=== PATIENT | female | born 1970 | race Caucasian/White ===

== ENCOUNTER 2022-02-10 13:16 | Emergency (ER) | payer BC, SELFPAY ==
[2022-02-10 13:28] VITALS: BP 122/57; PULSE 87; RESP 16; TEMP 36.6; O2SAT 99
--- NOTE | 2022-02-10 13:32 | ED.GENADULT ---
HPI - General Adult General Chief complaint: Ear Stated complaint: Bilateral Ear Irritation History of Present Illness HPI narrative: Patient is a 52 y/o female who presents to the [facility] via [facility] for an evaluation of R ear pain that began 1 week ago. Additionally, she reports yellow drainage from right ear, sneezing, nasal congestion, and intermittent headaches. Denies using otc meds for sx. Nothing improves or worsens sx. Of note, pt admits to using qtips to clean ears. Related Data Allergies Allergy/AdvReac Type Severity Reaction Status Date / Time No Known Allergies Allergy Verified 02/10/22 13:26 Review of Systems Review of Systems: Pertinent negatives fever, chills, sweats, change in appetite, poor p.o. intake, malaise, severe persistent headaches, rhinorrhea, sinus problems, tinnitus, vertigo, lightheadedness, hearing loss, muffled hearing, nausea, vomiting, sore throat, cough, shortness of breath, lymphadenopathy, chest pain, heart palpitations, and heart murmur. PMFSH Comments I have reviewed and agree with the patient's past medical, surgical, social, and family hx as documented by the RN. There is no relevant family history pertinent to the presenting complaint. Exam Narrative: GENERAL: Well-appearing, well-nourished, and in no acute distress. HEAD: Normocephalic, atraumatic. No sinus tenderness or facial swelling appreciated. EYES: PERRLA and EOMI. No evidence of erythema, swelling, or drainage. ENT: R TM BULGING WITH MODERATE AMOUNT OF PURULENT FLUID IS APPRECIATED UPON EXAM. MODERATE AMOUNT OF CLOUDY FLUID IS NOTED BEHIND R TM. MILD SWELLING AND ERYTHEMA NOTED TO R EAR CANAL. BONY LANDMARKS ARE POORLY VISUALIZED IN BILATERAL TMs. L ear canal is normal. No TM perforation. Nares clear, no rhinorrhea or epistaxis. Bilateral turbinates without erythema/ swelling. Mucous membranes moist and pink. Uvula is midline without erythema and swelling. Breath odor and voice normal. Patient has decreased hearing. NECK: Supple. No Lymphadenopathy or nuchal rigidity appreciated. CHEST: Bilateral lung willis are clear to auscultation. No respiratory distress. No evidence of cough or pleuritic cp upon examination. HEART: Regular rate and rhythm. No murmur, gallop, or rub heard. EXTREMITIES: Normal range of motion. No edema. SKIN: Warm, dry, no rash. NEURO: No focal deficits. Alert and oriented x3. Course Course Level of Care: Express Care Visit Vital Signs Vital signs: Vital Signs Temperature 97.9 F 02/10/22 13:28 Pulse Rate 87 02/10/22 13:28 Respiratory Rate 16 02/10/22 13:28 Blood Pressure 122/57 L 02/10/22 13:28 Pulse Oximetry 99 02/10/22 13:28 Oxygen Delivery Room Air 02/10/22 13:28 Temperature 97.9 F 02/10/22 13:28 Pulse Rate 87 02/10/22 13:28 Respiratory Rate 16 02/10/22 13:28 Blood Pressure 122/57 L 02/10/22 13:28 Pulse Oximetry 99 02/10/22 13:28 Oxygen Delivery Room Air 02/10/22 13:28 Reviewed Medical Decision Making Differential Diagnosis Differential Diagnosis: Otitis externa, barotrauma, eustachian tube dysfunction, AOM, OME, herpes zoster infection, acute mastoiditis, malignancy Vital Signs Vital Signs: Vital Signs Temperature 97.9 F 02/10/22 13:28 Pulse Rate 87 02/10/22 13:28 Respiratory Rate 16 02/10/22 13:28 Blood Pressure 122/57 L 02/10/22 13:28 Pulse Oximetry 99 02/10/22 13:28 Oxygen Delivery Room Air 02/10/22 13:28 Temperature 97.9 F 02/10/22 13:28 Pulse Rate 87 02/10/22 13:28 Respiratory Rate 16 02/10/22 13:28 Blood Pressure 122/57 L 02/10/22 13:28 Pulse Oximetry 99 02/10/22 13:28 Oxygen Delivery Room Air 02/10/22 13:28 Critical Care Time Critical Care Time Critical Care Time: No Discharge Plan Discharge Clinical Impression: Otitis media Qualifiers: Otitis media type: suppurative Chronicity: acute Laterality: right Recurrence: not specified as recurrent Spontaneous tympanic
== END 2022-02-10 13:47 | disposition home or self-care (01) ==
PROVIDERS: Emergency Provider Nurse Practitioner Family
DX: H66.001 Acute suppurative otitis media without spontaneous rupture of ear drum, right ear (principal); H60.501 Unspecified acute noninfective otitis externa, right ear
CPT/HCPCS: 99203; G0463

== ENCOUNTER 2022-03-08 08:26 | Emergency (ER) | payer BC, SELFPAY ==
--- NOTE | ~2022-03-08 | XR_ITS ---
EXAMINATION: XR lumbar spine 2-3V DATE: 03/08/2022 09:25 INDICATION: Low back pain TECHNIQUE: Anteroposterior and lateral views of the lumbar spine, and cone-down lateral view of the l umbosacral junction were obtained. COMPARISON: None. FINDINGS: Lumbar levocurvature is noted. There are 2 mm of retrolisthesis of L5 on S1. The vertebral body heights are maintained. There is mild loss of intervertebral disc space height throughout the amanda mbar spine. Small degenerative osteophytes project from the anterior endplates of multiple vertebral bodies. There is mild facet joint osteoarthritis in the lower lumbar spine. The bowel gas pattern is normal. Multiple phleboliths are noted in the pelvis. IMPRESSION: 1. Mild lumbar spondylosis. Reviewed, dictated and finalized at location B. IMPRESSION: 1. Mild lumbar spondylosis.
[2022-03-08 08:37] VITALS: BP 156/85; PULSE 99; RESP 18; TEMP 36.6; O2SAT 100
--- NOTE | 2022-03-08 09:03 | ED.BACK ---
HPI - Back Pain/Injury General Chief Complaint: Back Pain/Injury Stated Complaint: back pain Time Seen by Provider: 03/08/22 08:50 History of Present Illness HPI Narrative: 52-year-old female presents to the emergency room for evaluation of low back pain that has progressively been getting worse over the past 6 days. Patient denies any injury or trauma. Describes the pain as a pulling and throbbing sensation that is worse with trunk rotation to the right and left. Patient denies any radiating pain, paresthesias, or saddle anesthesia. States she has attempted ice and heat with no relief. Denies changes or difficulties to bowel or bladder habits. Related Data Allergies Allergy/AdvReac Type Severity Reaction Status Date / Time No Known Allergies Allergy Verified 02/10/22 13:26 Review of Systems Review of Systems: CONSTITUTIONAL: Denies fever, chills, or sweats. EYES: Denies visual changes, redness, or discharge. ENT: Denies rhinorrhea, congestion, sore throat, or otalgia. CARDIOVASCULAR: Denies chest pain, palpitations, or edema. RESPIRATORY: Denies cough or dyspnea. GASTROINTESTINAL: Denies abdominal pain, nausea, vomiting, or diarrhea. GENITOURINARY: Denies dysuria or hematuria. SKIN: Denies rash or itching. MUSCULOSKELETAL: Reports low back pain NEUROLOGIC: Denies headache, numbness, dizziness, or weakness. PSYCHIATRIC: Denies anxiety or depression. Exam Narrative: GENERAL: Well-appearing, well-nourished, no physical limitations, and in no acute distress. HEAD: Normocephalic, atraumatic. EYES: Conjunctivae normal, PERRLA and EOMI. CHEST: Clear to auscultation. No respiratory distress. No wheezes rales or rhonchi. HEART: Regular rate and rhythm. No murmur heard. Normal peripheral pulses. BACK: No CVA tenderness; No midline lumbar tenderness, step-offs, bony abnormality; FROM. -SLE bilaterally. Muscle spasms noted to inferior aspects of bilateral latissimus dorsi muscles EXTREMITIES: Normal range of motion. No edema. No clubbing or cyanosis SKIN: Warm, dry, no rash. No noted wounds NEURO: No focal deficits. Alert and oriented x3. MAEW. CN's II-XI intact bilaterally, normal gait PSYCH: Cooperative. Normal mood and affect. Course Vital Signs Vital signs: Vital Signs Temperature 36.6 C 03/08/22 08:37 Pulse Rate 99 03/08/22 08:37 Respiratory Rate 18 03/08/22 08:37 Blood Pressure 156/85 H 03/08/22 08:37 Pulse Oximetry 100 03/08/22 08:37 Oxygen Delivery Room Air 03/08/22 08:37 Temperature 36.6 C 03/08/22 08:37 Pulse Rate 99 03/08/22 08:37 Respiratory Rate 18 03/08/22 08:37 Blood Pressure 156/85 H 03/08/22 08:37 Pulse Oximetry 100 03/08/22 08:37 Oxygen Delivery Room Air 03/08/22 08:37 MDM - Back Pain/Injury MDM Narrative Medical decision making narrative: 52-year-old female presented the emergency room for evaluation of lower abdominal pain that has been present for 1 week. Patient states the pain has progressively gotten worse. States pain is worse with certain movements. Denies any known history of kidney stones. Plain films of the lower spine showed no acute abnormalities with couple of Pletal breath sounds at the lower pelvis. L-spine also shows a significant amount of bowel gas and retained stool. UA was positive for small amount of hematuria and leukocytes. Patient likely experiencing muscle spasms with secondary diagnosis of early UTI. Lab Data Labs: Lab Results 03/08/22 Range/Units 09:06 Urine Color Yellow (Yellow) Urine Appearance Clear (Clear) Urine pH 6.0 (5.0-9.0) Ur Specific Mead 1.005 (1.001-1.035) Urine Protein Negative (Negative) mg/dL Urine Glucose (UA) Negative (Negative) mg/dL Urine Ketones Negative (Negative) mg/dL Ur Blood (Man) 1+ H (Negative) Urine Nitrate Negative (Negative) Urine Bilirubin Negative (Negative) Urine Urobilinogen Negative (<2.0) mg/dL Leukocyte Esterase Rfl Trace H (Negative)
[2022-03-08 09:23] LABS: Add Urine Microscopic? YES; Appearance Urine Clear (Clear); Bilirubin Urine Negative (Negative); Blood Urine 1+ (Negative); Color Urine Yellow (Yellow); Glucose Urine UA Negative (Negative); Ketones Urine Negative (Negative); Leukocyte Esterase Ur Trace LEU/UL (Negative); Mucus Urine Rare /lpf; Nitrate Urine Negative (Negative); Protein Urine Negative (Negative); Specific Grav Ur 1.005 (1.001-1.035); Squamous Epithelial Cell Urine Few /hpf (Few); Urobilinogen Urine Negative mg/dL (<2.0)
[2022-03-08 09:58] VITALS: BP 121/72; PULSE 64; RESP 12; O2SAT 98
== END 2022-03-08 09:59 | disposition home or self-care (01) ==
PROVIDERS: Emergency Provider Nurse Practitioner Family
DX: S39.012A Strain of muscle, fascia and tendon of lower back, initial encounter (principal); N39.0 Urinary tract infection, site not specified; X58.XXXA Exposure to other specified factors, initial encounter
CPT/HCPCS: 72100; 81001; 99283

== ENCOUNTER 2024-05-10 09:10 | Emergency (ER) | payer BC, SELFPAY ==
[2024-05-10 09:41] VITALS: BP 117/54; PULSE 100; RESP 16; TEMP 36.1; O2SAT 99
[2024-05-10 10:22] LABS: EDCOVIDSCREEN Negative (Negative); EDINFLUASCREEN Negative (Negative); EDINFLUBSCREEN Negative (Negative)
--- NOTE | 2024-05-10 10:36 | ED.URI ---
HPI - URI/Sore Throat General Chief Complaint: Upper Respiratory Infection Stated Complaint: cough/congestion/bodyache Time Seen by Provider: 05/10/24 10:36 History of Present Illness HPI Narrative: 54-year-old female presented for complaint of nasal congestion and drainage, cough and fatigue. Onset 2 days. Denies shortness of breath, wheezing, nausea, vomiting, diarrhea, fevers or lethargy. Related Data Home Medications ?Medication ?Instructions ?Recorded ?Confirmed ?Last Taken ?Type atorvastatin 40 mg tablet mg 05/10/24 Unknown History bupropion HCl 150 mg 24 hr tablet, mg PO 05/10/24 Unknown History extended release Allergies Allergy/AdvReac Type Severity Reaction Status Date / Time No Known Allergies Allergy Verified 05/10/24 10:00 Review of Systems Review of Systems: CONSTITUTIONAL: Denies body aches, fever, chills, or sweats. EYES: Denies visual changes, redness, or discharge. ENT: Reports rhinorrhea, congestion, denies sore throat or otalgia. CARDIOVASCULAR: Denies chest pain, palpitations, or edema. RESPIRATORY: Reports cough Denies dyspnea or wheezing. GASTROINTESTINAL: Denies abdominal pain, nausea, vomiting, or diarrhea. SKIN: Denies rash MUSCULOSKELETAL: Denies back pain, joint pain, or myalgia. NEUROLOGIC: Denies headache Exam Narrative: GENERAL: mildly Ill-appearing, no acute distress. EYES: conjunctivae clear ENT: Mucous membranes moist. Nasal congestion. TM pearly arnold with normal light reflex bilaterally; no tragal tenderness. Oropharynx not erythematous without lesions. No drooling, no hoarseness, no trismus, uvula midline. No tripod positioning, hot potato voice, or soft palate swelling. NECK: Supple. No lymphadenopathy CHEST: Clear to auscultation, breath sounds equal. No respiratory distress, speaks in full sentences. HEART: Regular rate and rhythm. No murmur heard. SKIN: Warm, dry, no rash. NEURO: Alert and oriented x3. Course Course Emergency Course: Patient is aware of diagnosis, understands and agrees to treatment plan. Anticipatory guidance given. Patient agrees to follow-up as directed and is aware of reasons to seek care at the emergency department. Portions of this record may have been created with voice recognition software Level of Care: Express Care Visit Vital Signs Vital signs: Vital Signs Temperature 97.0 F L 05/10/24 09:41 Pulse Rate 100 05/10/24 09:41 Respiratory Rate 16 05/10/24 09:41 Blood Pressure 117/54 L 05/10/24 09:41 Pulse Oximetry 99 05/10/24 09:41 Oxygen Delivery Room Air 05/10/24 09:41 Temperature 97.0 F L 05/10/24 09:41 Pulse Rate 100 05/10/24 09:41 Respiratory Rate 16 05/10/24 09:41 Blood Pressure 117/54 L 05/10/24 09:41 Pulse Oximetry 99 05/10/24 09:41 Oxygen Delivery Room Air 05/10/24 09:41 MDM - URI/Sore Throat MDM Narrative Medical decision making narrative: Neg flu and covid result reviewed with pt. Advise supportive treatments. Patient is appropriate for outpatient treatment and follow-up. Differential Diagnosis Differential diagnosis: Likely upper respiratory infection, sinusitis, viral infection, bronchitis, influenza and pharyngitis Lab Data Labs: Lab Results 05/10/24 Range/Units 09:46 POC Influenza A Ag Negative (Negative) POC Influenza B Ag Negative (Negative) POC SARS CoV-2 Ag Negative (Negative) Discharge Plan Discharge Clinical Impression: Bronchitis Patient Disposition: Home, Self-Care Condition: Stable Instructions: Antibiotic Form, Acute Bronchitis (ED) Additional Instructions: Flu and COVID negative. Acute bronchitis can be contagious because it is usually caused by infection with a virus or bacteria. It is usually for a few days but you can be contagious for up to one week. Avoid crowds until you do not have a fever and symptoms are improved Take medication as directed Recommend Flonase spray and Zyrtec (or Claritin/Josseline) over the counter Cough syrup may cause drowsiness; avoid driving or take it at night time. Tylenol 1000mg every 8 hours as needed for pain Symptomatic treatment includes: rest, fluids, and increase humidity of the air at home. Follow up with your primary care provider as needed in 1 week Go to the ER for worsening symptoms or concerns Patient Language: Swedish Prescriptions: New benzonatate 200 mg capsule 200 mg PO TID PRN (Reason: cough) Qty: 20 0RF prednisone 20 mg tablet 40 mg PO DAILY 5 Days Qty: 10 0RF albuterol sulfate 90 mcg/actuation HFA aerosol inhaler 2 inh inhalation QID PRN (Reason: shortness of breath or wheezing) Qty: 8.5 0RF No Action atorvastatin 40 mg tablet bupropion HCl 150 mg tablet extended release 24 hr PO methocarbamol 500 mg tablet 500 mg PO TID Qty: 14 0RF Follow-up/Referrals: Brennen,Alison Quan MD [Primary Care Provider] - Stand Alone Forms: Work/School Release IP Time of Disposition: 10:49
== END 2024-05-10 10:51 | disposition home or self-care (01) ==
PROVIDERS: Emergency Provider Nurse Practitioner Family; PCP Student in an Organized Health Care Education/Training Program
DX: J40 Bronchitis, not specified as acute or chronic (principal); Z79.899 Other long term (current) drug therapy; Z20.822 Contact with and (suspected) exposure to COVID-19
CPT/HCPCS: 87081; 87426; 87804; 87880; 99213; G0463